=== PATIENT | female | born 1975 | race Caucasian/White ===

== ENCOUNTER 2024-08-26 16:28 | Inpatient (IN) | payer BC ==
[2024-08-26] MEDS ORDERED: Sodium Chloride 0.9% 10 ML Syringe FLUSH PRN (16:55)
[2024-08-26] MEDS: Acetaminophen 500 MG Tab PO ONE (17:00)
[2024-08-26 17:10] LABS: BASOPHILS ABSOLUTE AUTO 0.01 10^3/uL (0.00-0.10); BASOPHILS PERCENT AUTO 0.1 % (0.0-1.0); EOSINOPHILS ABSOLUTE AUTO 0.01 10^3/uL (0.10-0.30); EOSINOPHILS PERCENT AUTO 0.1 % (1.0-3.0); HEMATOCRIT 42.9 % (37.0-47.0); HEMOGLOBIN 15.1 g/dL (12.0-16.0); IMMATURE GRAN ABSOLUTE AUTO 0.02 10^3/uL (0.00-0.04); IMMATURE GRAN PERCENT AUTO 0.2 % (0.0-0.4); LYMPHOCYTES ABSOLUTE AUTO 0.89 10^3/uL (1.00-4.00); LYMPHOCYTES PERCENT AUTO 8.3 % (20.0-40.0); MEAN CORPUSCULAR HEMOGLOBIN 32.7 pg (27.0-31.0); MEAN CORPUSCULAR HGB CONC 35.2 g/dL (32.0-36.0); MEAN CORPUSCULAR VOLUME 92.9 fL (82.0-92.0); MEAN PLATELET VOLUME 9.9 fL (7.4-10.4); MONOCYTES ABSOLUTE AUTO 0.67 10^3/uL (0.10-0.80); MONOCYTES PERCENT AUTO 6.2 % (2.0-8.0); NEUTROPHILS ABSOLUTE AUTO 9.18 10^3/uL (2.50-7.00); NEUTROPHILS PERCENT AUTO 85.1 % (50.0-70.0); PLATELET COUNT,PLT 315 10^3/uL (150-400); RED BLOOD CELL COUNT 4.62 10^6/uL (3.80-5.50); RED CELL DISTRIBUTION WIDTH 12.3 % (11.5-14.5); WHITE BLOOD CELL COUNT,WBC 10.78 10^3/uL (5.00-10.00)
[2024-08-26] MEDS: Ibuprofen 600 MG Tab PO ONE (17:16)
[2024-08-26] MEDS: Sodium Chloride 0.9% 1,000 ML IV ONE (17:19)
[2024-08-26 17:24] LABS: ALANINE AMINOTRANSFERASE,ALT 44 U/L (14-63); ALKALINE PHOSPHATASE 72 U/L (46-116); ANION GAP 19.7 mmol/L (5-15); ASPARTATE AMNIOTRANSFERASE,AST 29 U/L (15-37); BILIRUBIN TOTAL 0.6 mg/dL (0.2-1.0); BLOOD UREA NITROGEN,BUN 8 mg/dL (7-18); CALCIUM 8.2 mg/dL (8.7-10.3); CARBON DIOXIDE,CO2 21.6 mmol/L (21.0-32.0); CHLORIDE,CL 100 mmol/L (98-107); CREATININE 1.09 mg/dL (0.51-1.17); GLUCOSE RANDOM 110 mg/dL (70-140); POTASSIUM,K 3.3 mmol/L (3.5-5.1); PROTEIN TOTAL,TP 7.3 g/dL (6.4-8.2); SODIUM,NA 138 mmol/L (136-145)
[2024-08-26 17:25] LABS: ESTIMATED GFR 63 mL/min (>=60)
[2024-08-26 17:27] LABS: LACTIC ACID 0.9 mmol/L (0.4-2.0)
[2024-08-26] MEDS: Albuterol/Ipratropium 3.0-0.5 MG/3 ML Neb Soln NEB ONE (18:37)
[2024-08-26] MEDS ORDERED: Acetaminophen 325 MG Tab PO PRN (21:04)
[2024-08-26] MEDS ORDERED: Ondansetron 4 MG/2 ML SDV IV PRN (21:04)
[2024-08-26] MEDS ORDERED: guaiFENesin/Dextromethorphan 100-10 MG/5 ML Soln 5 ML Cup PO PRN (21:22)
[2024-08-26] MEDS: Potassium Chloride 20 MEQ Tab.ER PO ONE (21:36)
[2024-08-26] MEDS: Lactated Ringers 1,000 ML IV SCH (21:37)
[2024-08-26 23:57] LABS: APPEARANCE,URINE SLIGHTLY CLOUDY (CLEAR); BILIRUBIN,URINE NEGATIVE (NEGATIVE); COLOR,URINE YELLOW (YELLOW); GLUCOSE,URINE NEGATIVE (NEGATIVE); KETONES,URINE 15 mg/dL (NEGATIVE); LEUKOCYTE ESTERASE,URINE MODERATE (NEGATIVE); NITRITE,URINE NEGATIVE (NEGATIVE); OCCULT BLOOD,URINE SMALL (NEGATIVE); PROTEIN,URINE NEGATIVE (NEGATIVE); UROBILINOGEN,URINE 0.2 E.U./dL (0.2-1.0)
[2024-08-27 00:10] LABS: BACTERIA,URINE FEW /HPF (NONE TO FEW); EPITHELIAL CELLS,URINE FEW /LPF; RBC,URINE 0-5 /HPF (0-5); WBC,URINE 30-40 /HPF (0-5)
[2024-08-27] MEDS: Albuterol/Ipratropium 3.0-0.5 MG/3 ML Neb Soln NEB PRN (06:07)
[2024-08-27] MEDS: Levothyroxine 75 MCG Tab PO SCH (06:07)
[2024-08-27 07:39] LABS: BASOPHILS ABSOLUTE AUTO 0.03 10^3/uL (0.00-0.10); BASOPHILS PERCENT AUTO 0.4 % (0.0-1.0); EOSINOPHILS ABSOLUTE AUTO 0.01 10^3/uL (0.10-0.30); EOSINOPHILS PERCENT AUTO 0.1 % (1.0-3.0); HEMATOCRIT 39.9 % (37.0-47.0); HEMOGLOBIN 13.4 g/dL (12.0-16.0); IMMATURE GRAN ABSOLUTE AUTO 0.01 10^3/uL (0.00-0.04); IMMATURE GRAN PERCENT AUTO 0.1 % (0.0-0.4); LYMPHOCYTES ABSOLUTE AUTO 1.47 10^3/uL (1.00-4.00); LYMPHOCYTES PERCENT AUTO 17.2 % (20.0-40.0); MEAN CORPUSCULAR HEMOGLOBIN 31.7 pg (27.0-31.0); MEAN CORPUSCULAR HGB CONC 33.6 g/dL (32.0-36.0); MEAN CORPUSCULAR VOLUME 94.3 fL (82.0-92.0); MEAN PLATELET VOLUME 9.8 fL (7.4-10.4); MONOCYTES ABSOLUTE AUTO 0.51 10^3/uL (0.10-0.80); NEUTROPHILS PERCENT AUTO 76.2 % (50.0-70.0); PLATELET COUNT,PLT 285 10^3/uL (150-400); RED BLOOD CELL COUNT 4.23 10^6/uL (3.80-5.50); RED CELL DISTRIBUTION WIDTH 12.4 % (11.5-14.5); WHITE BLOOD CELL COUNT,WBC 8.53 10^3/uL (5.00-10.00)
[2024-08-27 07:53] LABS: ANION GAP 17.5 mmol/L (5-15); CALCIUM 7.6 mg/dL (8.7-10.3); CARBON DIOXIDE,CO2 21.9 mmol/L (21.0-32.0); CREATININE 0.96 mg/dL (0.51-1.17); EST CRCL DRUG DOSING (CG) 74.9 mL/min; POTASSIUM,K 3.4 mmol/L (3.5-5.1)
[2024-08-27] MEDS ORDERED: LEVONORGESTREL PO SCH (09:00)
[2024-08-27] MEDS ORDERED: ETHIN ESTRADIOL PO SCH (09:00)
[2024-08-27] MEDS: Calcium Carbonate 600 MG Tab PO SCH (09:10)
[2024-08-27] MEDS: Folic Acid 1 MG Tab PO SCH (09:11)
[2024-08-27] MEDS: Calcitriol 0.25 MCG Cap PO SCH (09:11)
[2024-08-27] MEDS: Potassium Chloride 20 MEQ Tab.ER PO ONE (11:00)
[2024-08-27] MEDS: methylPREDNISolone Sodium Succinate 40 MG/1 ML SDV IVPUSH SCH (11:07)
[2024-08-28] MEDS ORDERED: ERGOCALCIFEROL 1250 MCG PO SCH (10:00)
== END 2024-08-28 11:50 | disposition home or self-care (01) | DRG 720 ==
LOC: KA.ED 16:28 → KA.MS 18:09
PROVIDERS: ADMIT Internal Medicine; ATTEND Internal Medicine
PROC: 3E0333Z Introduction of Anti-inflammatory into Peripheral Vein, Percutaneous Approach (ICD-10-PCS; principal; 2024-08-26)
DX: A41.9 Sepsis, unspecified organism (principal); J10.1 Influenza due to other identified influenza virus with other respiratory manifestations; J31.0 Chronic rhinitis; E86.0 Dehydration; N18.2 Chronic kidney disease, stage 2 (mild); E83.51 Hypocalcemia; E66.9 Obesity, unspecified; E89.0 Postprocedural hypothyroidism; E87.6 Hypokalemia; M06.9 Rheumatoid arthritis, unspecified; Z68.34 Body mass index [BMI] 34.0-34.9, adult; Z79.899 Other long term (current) drug therapy
CPT/HCPCS: 36415; 71045; 80048; 80053; 81001; 83605; 83735; 84484; 85025; 87040; 87428-QW; 93010; 94640; 96360; 99223-GT; 99233-GT; 99238-GT; 99284; 99285-25; A9270-GY; J2919; J7030; J7120; J7620-GY; Q3014